=== PATIENT | female | born 1945 | race Caucasian/White ===

== ENCOUNTER → 2023-06-10 06:18 | Day surgery (SDC) | payer MEDICARE, BC, SELFPAY | LOC: GI 06:18 | PROVIDERS: ATTENDING PHYSICIAN Internal Medicine | DX: K51.511 Left sided colitis with rectal bleeding (principal); K57.30 Diverticulosis of large intestine without perforation or abscess without bleeding; K92.1 Melena | CPT/HCPCS: 45330 ==

== ENCOUNTER → 2023-08-08 12:51 | Outpatient (REF) | payer MEDICARE, BC, SELFPAY | LOC: WDC 12:51 | PROVIDERS: ATTENDING PHYSICIAN Obstetrics & Gynecology Gynecology; FAMILY PHYSICIAN Student in an Organized Health Care Education/Training Program | DX: Z12.31 Encounter for screening mammogram for malignant neoplasm of breast (principal) | CPT/HCPCS: 77063; 77067 ==

== ENCOUNTER → 2023-09-21 10:45 | Outpatient (REF) | payer MEDICARE, BC, SELFPAY | LOC: RCS 10:45 | PROVIDERS: ATTENDING PHYSICIAN Internal Medicine Cardiovascular Disease; FAMILY PHYSICIAN Student in an Organized Health Care Education/Training Program; REFERRING PHYSICIAN Internal Medicine Clinical Cardiac Electrophysiology | DX: I44.7 Left bundle-branch block, unspecified (principal) | CPT/HCPCS: 93306 ==

== ENCOUNTER → 2023-11-20 09:48 | Outpatient (REF) | payer MEDICARE, BC, SELFPAY | LOC: WDC 09:48 | PROVIDERS: ATTENDING PHYSICIAN Obstetrics & Gynecology Gynecology | DX: R92.2 Inconclusive mammogram (principal); Z85.3 Personal history of malignant neoplasm of breast | CPT/HCPCS: 76641 ==

== ENCOUNTER → 2024-04-02 09:00 | Day surgery (SDC) | payer MEDICARE, BC, SELFPAY | LOC: GI 09:00 | PROVIDERS: ATTENDING PHYSICIAN Internal Medicine | DX: K22.70 Barrett's esophagus without dysplasia (principal); K22.2 Esophageal obstruction; K44.9 Diaphragmatic hernia without obstruction or gangrene; K31.A0 Gastric intestinal metaplasia, unspecified; K31.89 Other diseases of stomach and duodenum; R12 Heartburn | CPT/HCPCS: 43239; 88305 ==

== ENCOUNTER → 2024-07-27 09:41 | Outpatient (REF) | payer MEDICARE, BC, SELFPAY | LOC: HWRAD 09:41 | PROVIDERS: ATTENDING PHYSICIAN Student in an Organized Health Care Education/Training Program | DX: I72.2 Aneurysm of renal artery (principal) | CPT/HCPCS: 93975 ==

== ENCOUNTER → 2024-08-10 16:19 | Outpatient (REF) | payer MEDICARE, BC, SELFPAY | LOC: WDC 16:19 | PROVIDERS: ATTENDING PHYSICIAN Obstetrics & Gynecology Gynecology; FAMILY PHYSICIAN Student in an Organized Health Care Education/Training Program | DX: Z12.31 Encounter for screening mammogram for malignant neoplasm of breast (principal) | CPT/HCPCS: 77063; 77067 ==

== ENCOUNTER → 2024-11-04 10:46 | Outpatient (REF) | payer MEDICARE, BC, SELFPAY | LOC: WDC 10:46 | PROVIDERS: ATTENDING PHYSICIAN Obstetrics & Gynecology Gynecology; FAMILY PHYSICIAN Student in an Organized Health Care Education/Training Program | DX: R92.30 Dense breasts, unspecified (principal) | CPT/HCPCS: 76641 ==

== ENCOUNTER → 2025-01-08 08:14 | Outpatient (REF) | payer MEDICARE, BC, SELFPAY | LOC: DHVS 08:14 | PROVIDERS: ATTENDING PHYSICIAN Student in an Organized Health Care Education/Training Program | DX: I72.2 Aneurysm of renal artery (principal) | CPT/HCPCS: 93975 ==